=== PATIENT | female | born 1950 | race Caucasian/White ===

== ENCOUNTER 2021-05-23 10:27 | Outpatient (CLI) | payer MEDICARE, BC ==
[2021-05-24 08:06] LABS: SARS-CoV-2 PCR by NAA Not Detected (NotDetected)
== END 2021-05-23 10:28 | disposition home or self-care (01) ==
LOC: LABBT 10:27
PROVIDERS: ATTEND Neurological Surgery
DX: Z01.812 Encounter for preprocedural laboratory examination (principal); Z20.822 Contact with and (suspected) exposure to COVID-19
CPT/HCPCS: U0003; U0005

== ENCOUNTER 2021-05-26 06:54 | Day surgery (SDC) | payer MEDICARE, BC ==
[2021-05-24 13:28] VITALS: BMI 35.9
[2021-05-26] MEDS ORDERED: ceFAZolin 2 GM/DEX 5% 100 ML BAG ONE ×2 (07:40→12:23)
[2021-05-26] MEDS ORDERED: Rocuronium Bromide 50 MG/5 ML VIAL ONE (08:39)
[2021-05-26] MEDS ORDERED: Ondansetron PF 4 MG/2 ML Vial ONE ×2 (08:40→08:44)
[2021-05-26] MEDS ORDERED: Lidocaine 1% PF 5 ML VIAL ONE (08:44)
[2021-05-26] MEDS ORDERED: Rocuronium Bromide 10 MG/ML (10ML VIAL) ONE (08:44)
[2021-05-26] MEDS ORDERED: Fentanyl 100 MCG/2 ML VIAL ONE ×2 (09:02→09:45)
[2021-05-26] MEDS ORDERED: Cyclobenzaprine 10 MG TAB ONE (11:38)
== END 2021-05-26 13:25 | disposition home or self-care (01) ==
LOC: SDC 06:54
PROVIDERS: ATTEND Neurological Surgery
PROC: 0RG10A0 Fusion of Cervical Vertebral Joint with Interbody Fusion Device, Anterior Approach, Anterior Column, Open Approach (ICD-10-PCS; principal; 2021-05-26)
DX: M54.12 Radiculopathy, cervical region (principal); M48.02 Spinal stenosis, cervical region; M19.90 Unspecified osteoarthritis, unspecified site; J30.2 Other seasonal allergic rhinitis; E66.9 Obesity, unspecified; Z68.35 Body mass index [BMI] 35.0-35.9, adult; Z79.82 Long term (current) use of aspirin
CPT/HCPCS: 20930; 20936; 22551; 22853; 76000; C1713 ×2; C1776 ×2; J2405; J3010